=== PATIENT | male | born 2005 | race Caucasian/White ===

== ENCOUNTER 2023-08-10 22:14 | Emergency (ER) | payer SELFPAY | END 2023-08-10 23:30 | disposition left against medical advice (07) | LOC: DL.ED 22:14 | DX: Z53.21 Procedure and treatment not carried out due to patient leaving prior to being seen by health care provider (principal) ==

== ENCOUNTER 2024-07-30 01:08 | Emergency (ER) | payer OTHER | END 2024-07-30 03:31 | disposition home or self-care (01) | LOC: DL.ED 01:08 | DX: M25.562 Pain in left knee (principal) | CPT/HCPCS: 73562-LT; 99282; 99283 ==